=== PATIENT | male | born 1950 | race Caucasian/White ===

== ENCOUNTER → 2018-09-20 | Outpatient (CLI) | payer BC ==
[~2018-09-20] MED LIST: FERROUS SU325 MG/TAB PO; FOLIC ACID 40400 MCG PO; IRON325 M1 PO; VITAMIN C BUFF500 MG PO
[2018-09-20 08:54] LABS: HEMATOCRIT 43.5 % (42.0-52.0); HEMOGLOBIN 14.1 g/dl (13.5-18.0); MEAN CELL VOLUME 91 fl (80.0-100.0); MEAN CORPUSCULAR HEMOGLOBIN 29 pg (27.0-31.0); MEAN CORPUSCULAR HGB CONC 32 g/dl (33.0-37.0); MEAN PLATELET VOLUME 9.2 fl (7.4-10.4); PLATELET COUNT 207 K/mm3 (130-400); REDCELL DISTRIBUTION WIDTH-CV 13.7 % (11.5-14.5)
[2018-09-20 09:14] LABS: ERYTHROCYTE SEDIMENTATION RATE 2 mm/hr (0-30)
== END ==
LOC: COL.LAB 08:35
PROVIDERS: Orthopaedic Surgery
DX: Z96.651 Presence of right artificial knee joint (principal)